=== PATIENT | male | born 1955 ===

== ENCOUNTER → 2025-03-08 10:19 | Outpatient (BNVA) | payer OTHER, SELFPAY | PROVIDERS: Visit Provider Nurse Practitioner Family | DX: D17.1 Benign lipomatous neoplasm of skin and subcutaneous tissue of trunk (principal); L82.1 Other seborrheic keratosis; L81.4 Other melanin hyperpigmentation; B07.8 Other viral warts; R20.8 Other disturbances of skin sensation; R23.8 Other skin changes; L29.89 Other pruritus; L53.8 Other specified erythematous conditions; L82.0 Inflamed seborrheic keratosis; R20.9 Unspecified disturbances of skin sensation; D48.5 Neoplasm of uncertain behavior of skin; L57.0 Actinic keratosis | CPT/HCPCS: 11102; 17000; 17110; 99203 ==

== ENCOUNTER → 2025-05-28 13:06 | Outpatient (BNVA) | payer OTHER, SELFPAY | PROVIDERS: Visit Provider Nurse Practitioner Family | DX: D48.5 Neoplasm of uncertain behavior of skin (principal); L81.4 Other melanin hyperpigmentation; Z08 Encounter for follow-up examination after completed treatment for malignant neoplasm; Z85.828 Personal history of other malignant neoplasm of skin; B07.8 Other viral warts; R20.8 Other disturbances of skin sensation; R23.8 Other skin changes; L29.89 Other pruritus; L53.8 Other specified erythematous conditions | CPT/HCPCS: 17110; 99213 ==